=== PATIENT | female | born 1945 | race African-American/Black ===

== ENCOUNTER 2018-07-03 23:54 | Inpatient (IN) | payer OTHER, MEDICAID ==
[~2018-07-03] VITALS: Ht 167.6 cm; Wt 62.6 kg
[~2018-07-03 23:54] MED LIST: AMLO10TA80 PO; ASPI-1159 PO; BENA20TA10 PO; CARV6.2548 PO; FOLI-43 PO; HYDR-2510 PO; LEVO75TA7 PO; MEGE40TA27 PO
[2018-07-04] MEDS ORDERED: NITROGLYCERIN OINT 1GM/INCH UDPKT TD ONE (00:30)
[2018-07-04 01:33] LABS: BASOPHILS % 1.3 % (0.0-2.0); EOSINOPHILS % 1.4 % (0.0-5.0); HEMOGLOBIN. 8.7 g/dL (12.0-16.0); LYMPHOCYTES % 17.1 % (20.0-50.0); MEAN CORPUSCULAR HEMOGLOBIN 31.2 pg (28.0-32.0); MEAN CORPUSCULAR VOLUME 93.1 fL (81.0-99.0); MEAN PLATELET VOLUME 7.5 fl (7.4-10.4); MONOCYTES % 5.9 % (2.0-8.0); NEUTROPHILS % 74.3 % (40.0-76.0); PLATELET 551 x1000/uL (130-400); RED BLOOD CELL COUNT 2.79 mill/uL (4.2-5.4)
[2018-07-04 01:38] LABS: INR 1.1; PROTHROMBIN TIME 10.8 sec (9.1-11.1)
[2018-07-04 01:42] LABS: CHLORIDE 105 mEq/L (98-107)
[2018-07-04] MEDS ORDERED: ASPIRIN 325MG TABLET PO ONE (02:15)
[2018-07-04 15:00] VITALS: BP 151/88
[2018-07-04 16:00] VITALS: BP 121/73
[2018-07-04] MEDS: ASPIRIN 81MG TABLET PO SCH (17:01)
[2018-07-04] MEDS: AMLODIPINE 10MG TABLET PO SCH (17:01)
[2018-07-04] MEDS: FOLIC ACID 1MG TABLET PO SCH (17:01)
[2018-07-04] MEDS: LEVOTHYROXINE SODIUM 75MCG TABLET PO SCH (17:02)
[2018-07-04] MEDS: CARVEDILOL 6.25 MG TABLET PO SCH (17:02)
[2018-07-04] MEDS: HYDROCHLOROTHIAZIDE 25MG TABLET PO SCH (17:02)
[2018-07-04 17:08] VITALS: BP 130/77
[2018-07-04 20:00] VITALS: BP 114/67
[2018-07-04 21:41] LABS: BG BASE EXCESS 1.4 mmol/L (-2.0-2.0); BG CARBOXYHEMOGLOBIN 0.1 % (0.5-1.5); BG DEOXYHEMOGLOBIN 1.9 % (0.0-5.0); BG FRACTION INSPIRED OXYGEN 21; BG HCO3 ACT 23.9 mmol/L (22.0-26.0); BG METHEMOGLOBIN 0.3 % (0.0-1.5); BG OXYGEN SATURATION 98.1 % (92.0-98.5); BG OXYHEMOGLOBIN 97.7 % (94.0-97.0); BG PCO2 30.1 mmHg (35.0-45.0); BG PH 7.518 (7.350-7.450); BG PO2 110.2 mmHg (75.0-100.0); BG SAMPLE SITE LEFT RADIAL; BG TOTAL HEMOGLOBIN 9.3 g/dL (12.0-18.0); BG VENT MODE ROOM AIR
[2018-07-05] VITALS: BP 120/68
[2018-07-05 01:43] LABS: BASOPHILS % 0.4 % (0.0-2.0); EOSINOPHILS % 1.8 % (0.0-5.0); HEMATOCRIT. 28.6 % (36.0-48.0); HEMOGLOBIN. 9.3 g/dL (12.0-16.0); LYMPHOCYTES % 19.5 % (20.0-50.0); MEAN CORPUSCULAR HEMOGLOBIN 30.4 pg (28.0-32.0); MEAN CORPUSCULAR VOLUME 93.2 fL (81.0-99.0); MEAN PLATELET VOLUME 7.4 fl (7.4-10.4); MONOCYTES % 6.8 % (2.0-8.0); NEUTROPHILS % 71.5 % (40.0-76.0); PLATELET 534 x1000/uL (130-400); RED BLOOD CELL COUNT 3.07 mill/uL (4.2-5.4); RED CELL DISTRIBUTION WIDTH 17.2 % (11.6-14.6)
[2018-07-05 02:10] LABS: CHLORIDE 104 mEq/L (98-107)
[2018-07-05 04:00] VITALS: BP 129/60
[2018-07-05 08:00] VITALS: BP 107/74
[2018-07-05] MEDS: CARVEDILOL 6.25 MG TABLET PO SCH (08:35)
[2018-07-05] MEDS: AMLODIPINE 10MG TABLET PO SCH (08:36)
[2018-07-05] MEDS: HYDROCHLOROTHIAZIDE 25MG TABLET PO SCH (08:36)
[2018-07-05] MEDS: LEVOTHYROXINE SODIUM 75MCG TABLET PO SCH (08:37)
[2018-07-05] MEDS: FOLIC ACID 1MG TABLET PO SCH (08:37)
[2018-07-05] MEDS: ASPIRIN 81MG TABLET PO SCH (08:37)
[2018-07-05 12:00] VITALS: BP 94/64
[2018-07-05 16:00] VITALS: BP 128/71
[2018-07-05] MEDS ORDERED: DOCUSATE SODIUM 100MG CAPSULE PO PRN (17:00)
[2018-07-05] MEDS ORDERED: ACETAMINOPHEN 650MG SUPP PR PRN (17:00)
[2018-07-05] MEDS ORDERED: MAGNESIUM/ALUMINUM HYDROXIDE/SIMETHICONE 30ML UDC PO PRN (17:00)
[2018-07-05] MEDS ORDERED: HYDROCODONE/ACETAMINOPHEN 5/325MG TABLET PO PRN (17:00)
[2018-07-05] MEDS ORDERED: DIPHENHYDRAMINE 12.5MG/5ML UDC PO PRN (17:00)
[2018-07-05] MEDS ORDERED: IPRATROPIUM/ALBUTEROL 0.5-3(2.5)MG/3ML NEB HHN PRN (17:00)
[2018-07-05] MEDS ORDERED: ACETAMINOPHEN 325MG TABLET PO PRN (17:00)
[2018-07-05] MEDS ORDERED: LEVOFLOXACIN 500MG PREMIX 100 ML IV NR (19:00)
[2018-07-05] MEDS: ENOXAPARIN 30MG/0.3ML SYR SUBCUT SCH (19:15)
[2018-07-05] MEDS: IPRATROPIUM/ALBUTEROL 0.5-3(2.5)MG/3ML NEB HHN SCH (19:50)
[2018-07-05 20:00] VITALS: BP 133/74
[2018-07-05 21:23] LABS: CLARITY URINE CLEAR (CLEAR); COLOR URINE YELLOW (YELLOW); KETONES URINE NEGATIVE (NEGATIVE); LEUKOCYTE ESTERASE URINE 2+ (NEGATIVE); NITRITE URINE NEGATIVE (NEGATIVE); OCCULT BLOOD URINE 2+ (NEGATIVE); PROTEIN URINE 1+ (NEGATIVE); SPECIFIC GRAVITY URINE 1.014 (1.005-1.030); UROBILINOGEN URINE 0.2 E.U./dL (0.2-1.0)
[2018-07-05 21:42] LABS: *AMPHETAMINES SCREEN URINE NEGATIVE (NEGATIVE); *BARBITURATES SCREEN URINE NEGATIVE (NEGATIVE); *BENZODIAZEPINES SCREEN URINE NEGATIVE (NEGATIVE); *COCAINE SCREEN URINE NEGATIVE (NEGATIVE); CANNABINOID URINE SCREEN PRESUMTIVE POSITIVE (NEGATIVE); METHADONE URINE SCREEN NEGATIVE (NEGATIVE); OPIATES URINE SCREEN NEGATIVE (NEGATIVE); PHENCYCLIDINE URINE SCREEN NEGATIVE (NEGATIVE)
[2018-07-06] VITALS: BP 137/69
[2018-07-06] MEDS: IPRATROPIUM/ALBUTEROL 0.5-3(2.5)MG/3ML NEB HHN SCH ×3 (02:24→20:41)
[2018-07-06 04:00] VITALS: BP 123/69
[2018-07-06 06:48] LABS: BASOPHILS % 1.1 % (0.0-2.0); EOSINOPHILS % 1.2 % (0.0-5.0); HEMOGLOBIN. 9.8 g/dL (12.0-16.0); LYMPHOCYTES % 14.8 % (20.0-50.0); MEAN CORPUSCULAR HEMOGLOBIN 30.6 pg (28.0-32.0); MEAN PLATELET VOLUME 7.5 fl (7.4-10.4); MONOCYTES % 5.2 % (2.0-8.0); NEUTROPHILS % 77.7 % (40.0-76.0); PLATELET 537 x1000/uL (130-400); RED BLOOD CELL COUNT 3.19 mill/uL (4.2-5.4); RED CELL DISTRIBUTION WIDTH 17.7 % (11.6-14.6)
[2018-07-06 07:22] LABS: CHLORIDE 102 mEq/L (98-107)
[2018-07-06 07:48] LABS: CREATINE KINASE 108 IU/L (26-192); CREATINE KINASE MB FRACTION 5.1 ng/mL (0.5-3.6); HDL CHOLESTEROL 77 mg/dL (40-59); LDL CHOLESTEROL 70 mg/dL (5-100)
[2018-07-06 08:00] VITALS: BP 114/65
[2018-07-06] MEDS: FOLIC ACID 1MG TABLET PO SCH (09:07)
[2018-07-06] MEDS: ASPIRIN 81MG TABLET PO SCH (09:07)
[2018-07-06] MEDS: LEVOTHYROXINE SODIUM 75MCG TABLET PO SCH (09:07)
[2018-07-06] MEDS: AMLODIPINE 10MG TABLET PO SCH (09:08)
[2018-07-06] MEDS: CARVEDILOL 6.25 MG TABLET PO SCH (09:10)
[2018-07-06] MEDS: HYDROCHLOROTHIAZIDE 25MG TABLET PO SCH (09:11)
[2018-07-06] MEDS ORDERED: ATOR20TA65 MT (11:05)
[2018-07-06] MEDS ORDERED: ISOS10TA2 PO (11:05)
[2018-07-06] MEDS ORDERED: MELA10TA4 MT (11:05)
[2018-07-06] MEDS ORDERED: SENN1TAB8 PO (11:05)
[2018-07-06] MEDS ORDERED: FURO-151 PO (11:05)
[2018-07-06] MEDS ORDERED: LOPJ5 PO (11:05)
[2018-07-06] MEDS ORDERED: PANT40TA4 PO (11:05)
[2018-07-06] MEDS ORDERED: CLOP75TA16 PO (11:05)
[2018-07-06 12:00] VITALS: BP 100/62
[2018-07-06 16:00] VITALS: BP 96/57
[2018-07-06] MEDS ORDERED: PIPERACILLIN/TAZ 2.25G PREMIX 50 ML IV SCH (16:00)
[2018-07-06] MEDS: ENOXAPARIN 30MG/0.3ML SYR SUBCUT SCH (17:23)
[2018-07-06] MEDS ORDERED: LEVOFLOXACIN 250MG PREMIX 50 ML IV SCH (18:00)
[2018-07-06] MEDS: PIPERACILLIN/TAZ 2.25G PREMIX 50 ML IV SCH (19:17)
[2018-07-06 20:00] VITALS: BP 100/89
[2018-07-06] MEDS ORDERED: FUROSEMIDE 40MG/4ML VIAL IVP NR (21:00)
[2018-07-07 00:01] VITALS: BP 120/79
[2018-07-07] MEDS: IPRATROPIUM/ALBUTEROL 0.5-3(2.5)MG/3ML NEB HHN SCH ×4 (02:47→20:11)
[2018-07-07 04:00] VITALS: BP 122/58
[2018-07-07] MEDS: PIPERACILLIN/TAZ 2.25G PREMIX 50 ML IV SCH ×3 (05:00→17:24)
[2018-07-07 07:07] LABS: HEMATOCRIT 29.5 % (36.0-48.0); HEMOGLOBIN 9.6 g/dL (12.0-16.0); MEAN CORPUSCULAR HEMOGLOBIN 30.6 pg (28.0-32.0); MEAN CORPUSCULAR VOLUME 94.2 fL (81.0-99.0); PLATELET 514 x1000/uL (130-400); RED BLOOD CELL COUNT 3.13 mill/uL (4.2-5.4); RED CELL DISTRIBUTION WIDTH 17.4 % (11.6-14.6)
[2018-07-07 08:00] VITALS: BP 107/64
[2018-07-07] MEDS: CARVEDILOL 6.25 MG TABLET PO SCH (09:00)
[2018-07-07] MEDS: AMLODIPINE 10MG TABLET PO SCH (09:00)
[2018-07-07] MEDS: FOLIC ACID 1MG TABLET PO SCH (09:02)
[2018-07-07] MEDS: ASPIRIN 81MG TABLET PO SCH (09:02)
[2018-07-07] MEDS: LEVOTHYROXINE SODIUM 100MCG TABLET PO SCH (09:02)
[2018-07-07] MEDS: HYDROCHLOROTHIAZIDE 25MG TABLET PO SCH (09:05)
[2018-07-07] MEDS ORDERED: REGADENOSON 0.4 MG/5 ML IV ONE (11:45)
[2018-07-07 12:00] VITALS: BP 119/65
[2018-07-07 16:00] VITALS: BP 118/72
[2018-07-07] MEDS: ENOXAPARIN 30MG/0.3ML SYR SUBCUT SCH (17:25)
[2018-07-07 20:00] VITALS: BP 109/62
[2018-07-08] VITALS: BP 110/68
[2018-07-08] MEDS: IPRATROPIUM/ALBUTEROL 0.5-3(2.5)MG/3ML NEB HHN SCH ×3 (01:42→13:22)
[2018-07-08] MEDS: PIPERACILLIN/TAZ 2.25G PREMIX 50 ML IV SCH ×2 (02:06→11:31)
[2018-07-08 04:00] VITALS: BP 123/78
[2018-07-08 07:37] LABS: BASOPHILS % 1.4 % (0.0-2.0); EOSINOPHILS % 1.9 % (0.0-5.0); HEMATOCRIT. 28.5 % (36.0-48.0); HEMOGLOBIN. 9.4 g/dL (12.0-16.0); LYMPHOCYTES % 22.9 % (20.0-50.0); MEAN CORPUSCULAR HEMOGLOBIN 30.4 pg (28.0-32.0); MEAN CORPUSCULAR VOLUME 92.7 fL (81.0-99.0); MEAN PLATELET VOLUME 7.6 fl (7.4-10.4); MONOCYTES % 8.6 % (2.0-8.0); NEUTROPHILS % 65.2 % (40.0-76.0); PLATELET 423 x1000/uL (130-400); RED BLOOD CELL COUNT 3.08 mill/uL (4.2-5.4); RED CELL DISTRIBUTION WIDTH 16.8 % (11.6-14.6)
[2018-07-08 08:00] VITALS: BP 120/71
[2018-07-08] MEDS: LEVOTHYROXINE SODIUM 100MCG TABLET PO SCH (08:14)
[2018-07-08] MEDS ORDERED: REGADENOSON 0.4 MG/5 ML IV ONE (10:25)
[2018-07-08] MEDS: CARVEDILOL 6.25 MG TABLET PO SCH (11:31)
[2018-07-08] MEDS: ASPIRIN 81MG TABLET PO SCH (11:31)
[2018-07-08] MEDS: AMLODIPINE 10MG TABLET PO SCH (11:31)
[2018-07-08] MEDS: HYDROCHLOROTHIAZIDE 25MG TABLET PO SCH (11:31)
[2018-07-08] MEDS: FOLIC ACID 1MG TABLET PO SCH (11:34)
[2018-07-08 12:00] VITALS: BP 110/63
[2018-07-08 13:08] LABS: CHLORIDE 99 mEq/L (98-107)
[2018-07-08 15:27] VITALS: BP 110/63
[2018-07-08 16:00] VITALS: BP 103/82
[2018-07-08 16:14] LABS: PLATELET ESTIMATE INCREASED
== END 2018-07-08 16:45 | disposition home or self-care (01) | DRG 280 ==
LOC: ER 23:54 → EDBEDREQ 07-04 02:23 → EDBEDREQTM 07-04 02:23 → 7WST 07-04 03:54 → EDBEDREQTM 07-04 03:57 → EDBEDREQ 07-04 03:57 → ENRESERV 07-04 13:30
PROVIDERS: ADMIT Internal Medicine; ATTEND Internal Medicine
DX: I21.4 Non-ST elevation (NSTEMI) myocardial infarction (principal); I50.23 Acute on chronic systolic (congestive) heart failure; J18.1 Lobar pneumonia, unspecified organism; N17.9 Acute kidney failure, unspecified; D68.59 Other primary thrombophilia; I13.0 Hypertensive heart and chronic kidney disease with heart failure and stage 1 through stage 4 chronic kidney disease, or unspecified chronic kidney disease; D64.9 Anemia, unspecified; E03.9 Hypothyroidism, unspecified; F17.210 Nicotine dependence, cigarettes, uncomplicated; F12.90 Cannabis use, unspecified, uncomplicated; I25.10 Atherosclerotic heart disease of native coronary artery without angina pectoris; I35.9 Nonrheumatic aortic valve disorder, unspecified; N18.9 Chronic kidney disease, unspecified; Z95.1 Presence of aortocoronary bypass graft; Z95.3 Presence of xenogenic heart valve; Z88.2 Allergy status to sulfonamides; Z79.82 Long term (current) use of aspirin; Z79.899 Other long term (current) drug therapy
CPT/HCPCS: 36415; 36600; 51702; 71045; 71046; 76604; 76770; 78452; 78582; 80048; 80061; 80305; 82375; 82550; 82553; 82805; 83036; 83605; 83735; 83880; 84439; 84443; 84484; 85027; 85379; 87804; 93005; 93017; 93306; 93970; 94618; 94640; 97116; 97162; 97165; 99291; A9500; A9558; J1650; J1940; J1956; J2543; J2785; J7050; J7620; A4315

== ENCOUNTER 2018-11-24 20:29 | Inpatient (IN) | payer OTHER, MEDICAID ==
[~2018-11-24] VITALS: Ht 162.6 cm; Wt 48.8 kg
[~2018-11-24 20:29] MED LIST changes: +ATOR20TA65 MT; -BENA20TA10 PO; +CLOP75TA16 PO; -LEVO75TA7 PO; -MEGE40TA27 PO; +MELA10TA4 MT; +PANT40TA4 PO; +SENN1TAB8 PO
[2018-11-24] MEDS ORDERED: ASPIRIN 81MG TABLET PO ONE (21:00)
[2018-11-24 23:15] LABS: BASOPHILS % 0.4 % (0.0-2.0); EOSINOPHILS % 0.9 % (0.0-5.0); HEMATOCRIT. 32.8 % (36.0-48.0); HEMOGLOBIN. 10.9 g/dL (12.0-16.0); LYMPHOCYTES % 41.7 % (20.0-50.0); MEAN CORPUSCULAR HEMOGLOBIN 26.9 pg (28.0-32.0); MEAN CORPUSCULAR VOLUME 80.9 fL (81.0-99.0); MEAN PLATELET VOLUME 8.9 fl (7.4-10.4); MONOCYTES % 6.3 % (2.0-8.0); NEUTROPHILS % 50.7 % (40.0-76.0); PLATELET 210 x1000/uL (130-400); RED BLOOD CELL COUNT 4.05 mill/uL (4.2-5.4); RED CELL DISTRIBUTION WIDTH 24.5 % (11.6-14.6)
[2018-11-24 23:20] LABS: CHLORIDE 108 mEq/L (98-107)
[2018-11-24 23:28] LABS: PLATELET ESTIMATE NORMAL
[2018-11-25 09:20] VITALS: BP 130/59
[2018-11-25] MEDS ORDERED: LEVO75TA7 MT (10:56)
[2018-11-25] MEDS ORDERED: ISOS30TA12 MT (10:58)
[2018-11-25] MEDS ORDERED: TRAM50TA3 MT (10:58)
[2018-11-25] MEDS ORDERED: FURO-151 MT (10:58)
[2018-11-25] MEDS ORDERED: CARV6.2548 MT (10:58)
[2018-11-25] MEDS ORDERED: AMIO100T4 MT (10:58)
[2018-11-25] MEDS ORDERED: ONDANSETRON HCL 4MG/2ML INJ IV PRN (11:00)
[2018-11-25] MEDS ORDERED: MAGNESIUM/ALUMINUM HYDROXIDE/SIMETHICONE 30ML UDC PO PRN (11:00)
[2018-11-25] MEDS ORDERED: ACETAMINOPHEN 325MG TABLET PO PRN (11:00)
[2018-11-25] MEDS ORDERED: HYDROCODONE/ACETAMINOPHEN 5/325MG TABLET PO PRN (11:00)
[2018-11-25] MEDS ORDERED: LORAZEPAM 0.5MG TABLET PO PRN (11:00)
[2018-11-25] MEDS ORDERED: GUAIFENESIN 200MG/10ML SUGAR FREE UDC PO PRN (11:00)
[2018-11-25] MEDS ORDERED: NA PHOS,M-B/NA PHOS,DI-BA ENEMA 118ML PR PRN (11:00)
[2018-11-25] MEDS ORDERED: ACETAMINOPHEN 650MG SUPP PR PRN (11:00)
[2018-11-25] MEDS ORDERED: DOCUSATE SODIUM 100MG CAPSULE PO PRN (11:00)
[2018-11-25] MEDS ORDERED: IPRATROPIUM/ALBUTEROL 0.5-3(2.5)MG/3ML NEB INH PRN (11:00)
[2018-11-25] MEDS ORDERED: DIPHENHYDRAMINE 50MG/ML VIAL IV PRN (11:00)
[2018-11-25] MEDS ORDERED: CLONIDINE 0.1MG TABLET PO PRN (11:00)
[2018-11-25] MEDS: ASPIRIN 81MG EC TABLET PO SCH (12:14)
[2018-11-25] MEDS ORDERED: POTASSIUM CHLORIDE 20MEQ/PACKET PO NR ×2 (12:30→21:00)
[2018-11-25] MEDS: LEVOTHYROXINE SODIUM 75MCG TABLET PO SCH (13:41)
[2018-11-25] MEDS: ENOXAPARIN 30MG/0.3ML SYR SUBCUT SCH (13:41)
[2018-11-25] MEDS ORDERED: HYDRALAZINE 20MG/ML VIAL IV PRN (15:30)
[2018-11-25 16:00] VITALS: BP_SYST 100; BP_SYST 117; BP_DIAS 50; BP_DIAS 72
[2018-11-25 16:45] LABS: CLARITY URINE CLEAR (CLEAR); COLOR URINE YELLOW (YELLOW); KETONES URINE NEGATIVE (NEGATIVE); LEUKOCYTE ESTERASE URINE 1+ (NEGATIVE); NITRITE URINE NEGATIVE (NEGATIVE); OCCULT BLOOD URINE NEGATIVE (NEGATIVE); PH URINE 5.5 (4.5-8.0); PROTEIN URINE NEGATIVE (NEGATIVE); SPECIFIC GRAVITY URINE 1.018 (1.005-1.030); UROBILINOGEN URINE 0.2 E.U./dL (0.2-1.0)
[2018-11-25 16:56] LABS: *AMPHETAMINES SCREEN URINE NEGATIVE (NEGATIVE); *BARBITURATES SCREEN URINE NEGATIVE (NEGATIVE); *BENZODIAZEPINES SCREEN URINE NEGATIVE (NEGATIVE); *COCAINE SCREEN URINE NEGATIVE (NEGATIVE)
[2018-11-25 16:57] LABS: CANNABINOID URINE SCREEN PRESUMTIVE POSITIVE (NEGATIVE); METHADONE URINE SCREEN NEGATIVE (NEGATIVE); OPIATES URINE SCREEN NEGATIVE (NEGATIVE); PHENCYCLIDINE URINE SCREEN NEGATIVE (NEGATIVE)
[2018-11-25 18:08] LABS: HEMATOCRIT 36.6 % (36.0-48.0); HEMOGLOBIN 11.8 g/dL (12.0-16.0); MEAN CORPUSCULAR HEMOGLOBIN 26.5 pg (28.0-32.0); MEAN CORPUSCULAR VOLUME 82.4 fL (81.0-99.0); PLATELET 253 x1000/uL (130-400); RED BLOOD CELL COUNT 4.44 mill/uL (4.2-5.4); RED CELL DISTRIBUTION WIDTH 25.2 % (11.6-14.6)
[2018-11-25 20:00] VITALS: BP_SYST 108; BP_SYST 136; BP_SYST 98; BP_DIAS 66; BP_DIAS 67; BP_DIAS 73
[2018-11-25] MEDS ORDERED: LEVOFLOXACIN 500MG PREMIX 100 ML IV NR (20:00)
[2018-11-25] MEDS ORDERED: ATORVASTATIN CALCIUM 20MG TABLET PO SCH (21:00)
[2018-11-25] MEDS ORDERED: AMIODARONE HCL 200 MG TABLET PO SCH (21:00)
[2018-11-25] MEDS ORDERED: LEVOFLOXACIN 500MG PREMIX 100 ML IV SCH (21:00)
[2018-11-26] VITALS: BP 110/68
[2018-11-26 04:00] VITALS: BP 117/81
[2018-11-26 06:53] LABS: BASOPHILS % 0.5 % (0.0-2.0); EOSINOPHILS % 0.9 % (0.0-5.0); HEMATOCRIT. 35.7 % (36.0-48.0); HEMOGLOBIN. 11.7 g/dL (12.0-16.0); LYMPHOCYTES % 31.1 % (20.0-50.0); MEAN CORPUSCULAR HEMOGLOBIN 26.8 pg (28.0-32.0); MEAN CORPUSCULAR VOLUME 81.6 fL (81.0-99.0); MEAN PLATELET VOLUME 9.2 fl (7.4-10.4); MONOCYTES % 7.1 % (2.0-8.0); NEUTROPHILS % 60.4 % (40.0-76.0); PLATELET 225 x1000/uL (130-400); RED BLOOD CELL COUNT 4.37 mill/uL (4.2-5.4); RED CELL DISTRIBUTION WIDTH 25.3 % (11.6-14.6)
[2018-11-26 07:01] LABS: CHLORIDE 108 mEq/L (98-107)
[2018-11-26] MEDS: LEVOTHYROXINE SODIUM 75MCG TABLET PO SCH (07:19)
[2018-11-26 07:26] LABS: LDL CHOLESTEROL 108 mg/dL (5-100)
[2018-11-26 07:27] LABS: CREATINE KINASE 130 IU/L (26-192); CREATINE KINASE MB FRACTION 2.7 ng/mL (0.5-3.6)
[2018-11-26 07:28] LABS: HDL CHOLESTEROL 61 mg/dL (40-59); T4 FREE 1.68 ng/dL (0.76-1.46)
[2018-11-26] MEDS: ASPIRIN 81MG EC TABLET PO SCH (08:52)
[2018-11-26] MEDS: ENOXAPARIN 30MG/0.3ML SYR SUBCUT SCH (08:53)
[2018-11-26] MEDS ORDERED: CLOPIDOGREL 75MG TABLET PO SCH (09:00)
[2018-11-26] MEDS ORDERED: POTASSIUM CHLORIDE 20MEQ/PACKET PO NR (10:30)
[2018-11-26 11:55] VITALS: BP 119/80
[2018-11-26 14:00] VITALS: BP_SYST 113; BP_SYST 121; BP_SYST 134; BP_DIAS 73; BP_DIAS 77; BP_DIAS 87
[2018-11-26 16:00] VITALS: BP 118/72
[2018-11-26 18:54] VITALS: BP 113/73
[2018-11-27] MEDS ORDERED: LEVOFLOXACIN 250MG PREMIX 50 ML IV SCH ×2 (14:00→20:00)
== END 2018-11-26 20:00 | disposition home or self-care (01) | DRG 291 ==
LOC: ER 20:29 → 8WST 11-25 02:56 → EDBEDREQTM 11-25 02:58 → EDBEDREQ 11-25 02:58 → ENRESERV 11-25 08:08
PROVIDERS: ADMIT Internal Medicine; ATTEND Internal Medicine
DX: I13.0 Hypertensive heart and chronic kidney disease with heart failure and stage 1 through stage 4 chronic kidney disease, or unspecified chronic kidney disease (principal); I50.23 Acute on chronic systolic (congestive) heart failure; D63.8 Anemia in other chronic diseases classified elsewhere; E03.9 Hypothyroidism, unspecified; E78.5 Hyperlipidemia, unspecified; E86.0 Dehydration; E87.6 Hypokalemia; F17.210 Nicotine dependence, cigarettes, uncomplicated; I25.10 Atherosclerotic heart disease of native coronary artery without angina pectoris; I35.9 Nonrheumatic aortic valve disorder, unspecified; R07.89 Other chest pain; G90.8 Other disorders of autonomic nervous system; R00.1 Bradycardia, unspecified; T44.7X5A Adverse effect of beta-adrenoreceptor antagonists, initial encounter; I44.0 Atrioventricular block, first degree; J44.9 Chronic obstructive pulmonary disease, unspecified; N18.9 Chronic kidney disease, unspecified; R62.7 Adult failure to thrive; Z95.1 Presence of aortocoronary bypass graft; Z95.3 Presence of xenogenic heart valve; Z87.440 Personal history of urinary (tract) infections; Z88.2 Allergy status to sulfonamides; Z79.82 Long term (current) use of aspirin; Z79.899 Other long term (current) drug therapy; I25.2 Old myocardial infarction; Y92.89 Other specified places as the place of occurrence of the external cause
CPT/HCPCS: 36415; 71045; 80048; 80061; 80305; 82550; 82553; 83036; 83735; 83880; 84439; 84443; 84484; 85027; 85379; 87804; 93005; 93306; 93880; 93970; 96372; 97162; 99285; J1650; J1956; J7050